=== PATIENT | female | born 1950 | race Caucasian/White ===

== ENCOUNTER 2020-12-25 13:31 | Outpatient (CLI) | payer MEDICARE, OTHER, SELFPAY ==
--- NOTE | 2020-12-25 13:40 | XRR_ITS ---
PROCEDURE INFORMATION: Exam: XR Chest Exam date and time: 12/25/2020 1:40 PM Age: 70 years old Clinical indication: Cough TECHNIQUE: Imaging protocol: XR of the chest. Views: 2 views. COMPARISON: No relevant prior studies available. FINDINGS: Lungs: The lungs are hyperinflated compatible with COPD with mild fibrosis. No consolidation. Pulmonary vascularity is within normal limits. Pleural spaces: Unremarkable. No pleural effusion. No pneumothorax. Heart/Mediastinum: Unremarkable. No cardiomegaly. Bones/joints: No acute abnormality. Dextroscoliosis and moderate degenerative changes are noted. XR/XR chest 2V* [id number] IMPRESSION: No acute findings.
== END 2020-12-25 13:32 | disposition home or self-care (01) ==
LOC: RAD 13:38
PROVIDERS: PCP Nurse Practitioner Family; Visit Provider Otolaryngology
DX: R05 Cough (principal)
CPT/HCPCS: 71046

== ENCOUNTER → 2021-01-03 10:09 | Outpatient (BNVA) | payer MEDICARE, OTHER, SELFPAY | PROVIDERS: PCP Nurse Practitioner Family; Visit Provider Otolaryngology | DX: Z20.822 Contact with and (suspected) exposure to COVID-19 (principal) | CPT/HCPCS: 87635 ==

== ENCOUNTER 2021-01-09 08:47 | Outpatient (CLI) | payer MEDICARE, OTHER, SELFPAY ==
--- NOTE | 2021-01-09 14:33 | PFTS_ITS ---
Date of Study:01/09/21 Date of Dictation: MECHANICS: Forced vital capacity (FVC) is reduced. Forced expiratory volume in one second (FEV1) is reduced. FEV1/FVC is reduced. FLOW VOLUME LOOP: Reduced flow at all lung volumes with significant scooping. LUNG VOLUMES: Not measured DIFFUSING CAPACITY FOR CARBON MONOXIDE: Not measured. INTERPRETATION: The postbronchodilator spirometry is consistent with moderate airflow obstruction. There is no significant postbronchodilator response. MTDD
== END 2021-01-09 08:48 | disposition home or self-care (01) ==
PROVIDERS: PCP Nurse Practitioner Family; Visit Provider Otolaryngology
DX: R05 Cough (principal)
CPT/HCPCS: 94060; J7611

== ENCOUNTER → 2021-04-04 10:40 | Outpatient (BNVA) | payer MEDICARE, OTHER, SELFPAY | PROVIDERS: PCP Nurse Practitioner Family; Visit Provider Internal Medicine Pulmonary Disease | DX: J45.30 Mild persistent asthma, uncomplicated (principal); Z20.822 Contact with and (suspected) exposure to COVID-19 | CPT/HCPCS: 87635 ==

== ENCOUNTER 2021-04-10 08:49 | Outpatient (CLI) | payer MEDICARE, OTHER, SELFPAY ==
--- NOTE | 2021-04-10 13:19 | PFTS_ITS ---
Date of Study:04/10/21 Date of Dictation: 04/11/2021 MECHANICS: Postbronchodilator forced vital capacity (FVC) is reduced. Postbronchodilator forced expiratory volume in one second (FEV1) is moderately reduced. FEV1/FVC is reduced. There is significant response to bronchodilators FLOW VOLUME LOOP: Significant sloping of expiratory limb suggestive of airway obstruction . LUNG VOLUMES: Total lung capacity (TLC) is increased. Residual volume (RV) is increased suggestive of airway trapping. DIFFUSING CAPACITY FOR CARBON MONOXIDE: Normal . INTERPRETATION: The pulmonary function tests are consistent with reversible obstructive ventilatory disease. Spirometry suggestive of moderate obstruction with significant response to bronchodilators. Lung volumes suggestive of severe air trapping and hyperinflation. Normal gas transfer. Clinical correlation recommended. MTDD
== END 2021-04-10 08:50 | disposition home or self-care (01) ==
LOC: RT 08:50
PROVIDERS: PCP Nurse Practitioner Family; Visit Provider Internal Medicine Pulmonary Disease
DX: J45.30 Mild persistent asthma, uncomplicated (principal)
CPT/HCPCS: 94060; 94726; 94729

== ENCOUNTER 2023-08-05 09:56 | Outpatient (CLI) | payer MEDICARE, OTHER, SELFPAY ==
--- NOTE | 2023-08-05 10:02 | XRR_ITS ---
PROCEDURE INFORMATION: Exam: XR Lumbosacral Spine Exam date and time: 08/05/2023 10:20 AM Age: 73 years old Clinical indication: Low back pain; Additional info: Lumbar pain TECHNIQUE: Imaging protocol: Radiologic exam of the lumbosacral spine. Views: 2 or 3 views. COMPARISON: CR XR hip BI m 5V wo/w pel* [id number] 08/05/2023 10:20 AM FINDINGS: Bones/joints: Minimal reverse listhesis from L 2 through L4. Mild levocurvature. Severe degenerative disc disease from L3 through S1. Moderate degenerative disc disease at L2-L3. Moderate degenerative disc disease of the lower thoracic spine. No acute fracture or dislocation. There are sclerotic changes of the lower lumbar spine facet joints. Soft tissues: No significant soft tissue pathology. XR/XR lumbar spine 2-3V* [id number] IMPRESSION: Marked degenerative change of lumbar spine greatest from L3 through S1. No acute pathology.
--- NOTE | 2023-08-05 10:02 | XRR_ITS ---
PROCEDURE INFORMATION: Exam: XR Bilateral Hips Exam date and time: 08/05/2023 10:20 AM Age: 73 years old Clinical indication: Hip pain; Bilateral; Additional info: Pain in R hip, hip to include pelvis, 2 views each hip and pelvis submitted, changed to 5 TECHNIQUE: Imaging protocol: Radiologic exam of the bilateral hips. Views: 2 views of hips with pelvis when performed. COMPARISON: CR XR lumbar spine 2-3V* [id number] 08/05/2023 10:20 AM FINDINGS: Bones/joints: Minimal degenerative changes of the hip and sacroiliac joints. No acute fracture or dislocation. Incomplete imaging of the lumbar spine degenerative change; see accompanying lumbar spine radiograph report for results. Soft tissues: Vascular calcifications noted in the soft tissues. XR/XR hip BI m 5V wo/w pel* [id number] IMPRESSION: No significant hip pathology.
== END 2023-08-05 09:57 | disposition home or self-care (01) ==
LOC: RAD 09:58
PROVIDERS: PCP Nurse Practitioner Family; Visit Provider Nurse Practitioner Family
DX: M51.37 Other intervertebral disc degeneration, lumbosacral region (principal); M25.551 Pain in right hip
CPT/HCPCS: 72100; 73523

== ENCOUNTER 2023-09-23 12:33 | Outpatient (CLI) | payer MEDICARE, OTHER, SELFPAY ==
--- NOTE | 2023-09-23 12:37 | XR_ITS ---
WS: [id number] SCREENING DEXA SCAN [employer] CLINICAL INFORMATION: POST MENOPAUSAL COMPARISON: None. FINDINGS: The L1-L4 bone mineral density measures 1.387 g/cm2. This corresponds to a T score score of 1.7 and Z score of 2.8. Left femoral neck bone mineral density measures 0.949 g/cm2. This corresponds to a T score of -0.5 an d Z score of 0.8. Right femoral neck bone mineral density measures 0.952 g/cm2. This corresponds to a T score -0.4of an d Z score of 0.8. Mean femoral neck bone mineral density measures 0.951 g/cm2. This corresponds to a T score of -0.5 an d Z score of 0.8. IMPRESSION: Normal bone mineralization lumbar spine and femoral necks. Patient's FRAX calculated 10 year probability for major osteoporotic fracture is 11.8% and osteoporot ic hip fracture is 2.6%.
== END 2023-09-23 12:34 | disposition home or self-care (01) ==
LOC: RAD 12:33
PROVIDERS: PCP Nurse Practitioner Family; Visit Provider Nurse Practitioner Family
DX: Z78.0 Asymptomatic menopausal state (principal)
CPT/HCPCS: 77080